=== PATIENT | female | born 1950 | race Caucasian/White ===

== ENCOUNTER 2017-09-23 11:54 | Inpatient (IN) ==
[2017-09-23] MEDS ORDERED: Acetaminophen IV 1,000 MG/100 ML INFUS..BTL IVPB ONE (12:47)
--- NOTE | 2017-09-23 12:50 | Anesthesia Evaluation PreOp ---
Date of Encounter: 09/23/17 Time of Encounter: 12:47 - Past History Planned Operation: lap sigmoidd colectomy, poss open, colonoscopy intraop Cardiac History: HTN Pulmonary History: Denies Any Significant HX MANAGER AGRICULTURE History: Other (anxiety) Other Medical History: Diabetes Type II, Other (gout, arthritis) Anesthesia History: No Prior Anesthetic Complications, Past Anesthesia (jarad, appendectomy, d&c, hysterectomy, kidney stones, colonoscopy) Alcohol Use: none Drug use: none Medications and Allergies ALPRAZolam [Xanax 0.5 MG Tablet] 0.5 mg PO BID PRN 09/23/17 [History] Atorvastatin [Lipitor] 10 mg PO HS 09/23/17 [History] Fish Oil/Dha/Epa [Fish Oil 1,200 mg Fish Oil] 1 cap PO DAILY 09/23/17 [History] Gabapentin [Neurontin] 100 mg PO BID 09/23/17 [History] Gabapentin [Neurontin] 200 mg PO HS 09/23/17 [History] Hydrochlorothiazide [Microzide] 12.5 mg PO DAILY 09/23/17 [History] Lisinopril [Zestril] 20 mg PO DAILY 09/23/17 [History] Multivitamin/Iron/Folic Acid [Centrum Women Tablet] 1 tab PO DAILY 09/23/17 [ History] 3 Allergy/AdvReac Type Severity Reaction Status Date / Time No Known Allergies Allergy Verified 09/23/17 12:45 - Meds/Allergy Pre-op Review Medications Reviewed: Yes Allergies Reviewed: Yes Beta Blockers on Current Med List: No Anesthesia Results - Labs Laboratory Tests 07/29/17 09/15/17 09/15/17 13:30 14:00 14:00 WBC 12.6 H Hgb 11.9 Hct 35.1 L Plt Count 275 PT 11.3 INR 1.1 APTT 29.9 Sodium Potassium Chloride Carbon Dioxide BUN Creatinine Glucose 106 H 09/15/17 14:00 WBC Hgb Hct Plt Count PT INR APTT Sodium 139 Potassium 4.0 Chloride 107 Carbon Dioxide 26 BUN 21 Creatinine 0.63 Glucose - Imaging EKG: report reviewed (09/15/17 sinus bradycardia at 56 bpm) Anesthesia Exam O2 Sat Height 1.68 m Weight 97.976 kg Height: 66" Weight: 216lbs NPO (# of Hours): >8 Pain Scale: 0 Pain Scale Used: Numeric (1 - 10) - HEENT Pupil (Motor): Pupils equal, EOMI Mallampati: III Teeth: Normal Oral Opening: Greater than 3 - MANAGER AGRICULTURE LOC: Oriented MANAGER AGRICULTURE Motor: Normal RUE, Normal LUE, Normal RLE, Normal LLE, Normal Face MANAGER AGRICULTURE Sensory: Normal: RUE, LUE, RLE, LLE, Face - Cardiac Rhythm: Regular - Pulmonary Breath Sounds: bilateral Clear Respiratory Effort: Symmetrical Anesthesia Assess/Plan ASA Score: 2 Modified Yeni Scale for Level of Consciousness: Cooperative, oriented, and tranquil Anesthetic Plan: General Monitoring Plan: Standard Monitors Recovery Plan: PACU
[2017-09-23] MEDS ORDERED: CeFAZolin Syr 2,000MG/20 ML 2,000 MG/20 ML SYRINGE IVPB ONE ×2 (13:11→23:53)
[2017-09-23] MEDS ORDERED: MetroNIDAZOLE 500 MG/100 ML 500 MG/100 ML BAG IVPB ONE ×2 (13:13→23:53)
[2017-09-23] MEDS: Ringers Solution, Lactated 1,000 ML IVC SCH ×2 (13:24→23:29)
--- NOTE | 2017-09-23 14:59 | General Surg History&Physical ---
Date of Encounter: 09/23/17 Time of Encounter: 14:57 Assessment and Plan (1) Colon polyp Current Visit: Yes Status: Acute 66F with polyp found on screening colonosocpy that was unresectable; pathology identified an adenomatous change within the lesion; patient also with blood rectal discharge for over a year; no changes in patient health since last evaluation okay to proceed with surgery The assessment and plan as outlined above was discussed with the patient and/or family members who expressed understanding and agreement. All questions were answered. Qualifiers: Colon polyp type: adenomatous Colon location: sigmoid Qualified Code(s): D12.5 - Benign neoplasm of sigmoid colon History of Present Illness Chief complaint: unresectable polyp, tarry black/blood rectal discharge HPI: Ms. Crawford is a 66 year old female who is s/p screenng colonoscopy who was found to have an unresectable polyp. In addition, after the colonoscopy, she has reported tarry black, blood rectal discharge for over a year. Due to these symptoms I felt it was prudent to offer her a resection; Past Med Surg Social Fam HX - Past Medical History Medical history: arthritis, dialysis, hyperlipidemia, hypertension, kidney stones Psychiatric history: anxiety - Past Surgical History Surgical History: appendectomy, cholecystectomy, hysterectomy - Social History Smoking Status: Never smoker Smokeless Tobacco Status: No Alcohol use: none Drug use: none - Additional Family History Additional family history: non contributory Medications and Allergies ALPRAZolam [Xanax 0.5 MG Tablet] 0.5 mg PO BID PRN 09/23/17 [History] Atorvastatin [Lipitor] 10 mg PO HS 09/23/17 [History] Bran/Gum/Fib/Monica/Psyl/Kelp/Pec [Fiber 6 Tablet] 1,000 mg PO DAILY 09/23/17 [ History] Fish Oil/Dha/Epa [Fish Oil 1,200 mg Fish Oil] 1 cap PO DAILY 09/23/17 [History] Gabapentin [Neurontin] 100 mg PO BID 09/23/17 [History] Gabapentin [Neurontin] 200 mg PO HS 09/23/17 [History] Hydrochlorothiazide [Microzide] 12.5 mg PO DAILY 09/23/17 [History] Lisinopril [Zestril] 20 mg PO DAILY 09/23/17 [History] Multivitamin/Iron/Folic Acid [Centrum Women Tablet] 1 tab PO DAILY 09/23/17 [ History] 3 Allergy/AdvReac Type Severity Reaction Status Date / Time No Known Allergies Allergy Verified 09/23/17 13:17 Review of Systems All systems PM: The remainder of the systems were reviewed and are negative General Surgery Exam Initial Vital Signs Temp Pulse Resp BP Pulse Ox 97.8 F 97 18 113/63 98 09/23/17 13:00 09/23/17 13:00 09/23/17 13:00 09/23/17 13:00 09/23/17 13:00 - General physical appearance well developed, no distress - Eyes normal ocular movement - ENT normocephalic - Neck no lymphadectomy - Respiratory normal expansion, normal respiratory effort - Cardiovascular Cardiovascular exam: Present: RRR - Abdomen Abdomen general surgery: Present: soft, non tender - Integumentary Integumentary general surgery: Present: warm and dry - Neurologic Present: CN 2-12 grossly intact - Musculoskeletal Present: normal posture - Psychiatric Psychiatric general surgery: Present: A&Ox3 Results - Labs All other labs normal.
[2017-09-23] MEDS ORDERED: Lidocaine -MPF 2% 2 ML VIAL ONE (16:45)
[2017-09-23] MEDS ORDERED: *HR* Rocuronium Bromide 50 MG/5 ML VIAL ONE ×2 (16:45→18:47)
[2017-09-23] MEDS ORDERED: *HR* Propofol 200 MG/20 ML VIAL IVP ONE (16:45)
[2017-09-23] MEDS ORDERED: *HR* FentaNYL (PF) 100 MCG/2 ML VIAL ONE ×2 (16:45→18:48)
[2017-09-23] MEDS ORDERED: *HR* Succinylcholine 200 MG/10 ML VIAL IVP ONE (16:45)
[2017-09-23] MEDS ORDERED: *HR* Midazolam HCl 2 MG/2 ML VIAL ONE ×3 (16:45)
[2017-09-23] MEDS ORDERED: *HR* Midazolam HCl 2 MG/2 ML VIAL IVP PRN (16:47)
[2017-09-23] MEDS ORDERED: *HR* OxyCODONE Immed Rel 5 MG TABLET PO PRN ×3 (16:47→23:53)
[2017-09-23] MEDS ORDERED: MORPHINE SUL Oral CONC 10 MG/0.5 ML ORAL.SYG SL PRN (16:47)
[2017-09-23] MEDS ORDERED: *HR* Promethazine 25 MG/ML VIAL IVP PRN (16:47)
[2017-09-23] MEDS ORDERED: *HR* HYDROmorphone 2 MG TABLET PO PRN (16:47)
[2017-09-23] MEDS ORDERED: *HR* PHENYLEPHRINE 1,000 MCG/10 ML SYRINGE IVP ONE (19:01)
[2017-09-23] MEDS ORDERED: Dexamethasone 4 MG/ML VIAL ONE (19:34)
[2017-09-23] MEDS ORDERED: Ondansetron 4 MG/2 ML VIAL ONE ×2 (19:34→22:04)
[2017-09-23] MEDS ORDERED: *HR* Morphine 10 MG/ML VIAL ONE (20:15)
[2017-09-23] MEDS ORDERED: EPHEDrine 50 MG/ML VIAL ONE (20:49)
[2017-09-23] MEDS ORDERED: Neostigmine Methylsulfate 3 MG/3 ML SYRINGE ONE (22:04)
--- NOTE | 2017-09-23 22:12 | Operative Note ---
Date of procedure: 09/23/17 Pre-op diagnosis: Unresectable colon polyp Post-op diagnosis: same Procedure: Sigmoid colectomy Anesthesia: GETA Surgeon: Edgardo Fuller Was there an school health assistant present: Yes Fisheries Director: Zak Moody Estimated blood loss (cc): 50 Specimen: Sigmoid colon Condition: stable Disposition: PACU Procedure in Detail: Co-surgeon note I was asked to participate in the open portion of the sigmoid colectomy. Dr. Mckenna had performed attempted laparoscopic sigmoid colectomy and was unable to complete this laparoscopically. Appropriate conversion to open was made area I was able to perform mobilization of the peritoneal reflection of the rectum allowing further mobilization of the rectum out of the pelvis. Once this was done we are able to identify some sigmoid colon remained in that the rectosigmoid was actually somewhat lower. A new Contour staple line was placed below the previous staple line and this included all of the sigmoid colon. This allowed the EEA to pass easily to the level of the staple line. Dr. Moody and previously placed a 29 mm anvil in the proximal colon. This appeared to be well vascularized. I performed the perineal operation of the EEA. This was passed under Dr. Mckenna direction to the staple line. I advanced the post through the staple line. Dr. Mckenna connected the anvil to the post. I closed to the middle of the green indicator and fired the EEA. This was held for 30 seconds. I then opened 3/2 turns and rotated 90 degrees in each direction area the EEA was removed easily. Both anastomotic rings were intact. At the conclusion of the staple anastomosis, we performed circumferential seromuscular stitches to reinforce the staple line. We also closed the mesentery to remove any tension from the posterior portion of the anastomosis. The tension was perfect and the anastomosis appeared to be well vascularized. This gave an excellent technical result. The abdomen was irrigated with saline and air tested the anastomosis. There did not appear to be any air leaks. The abdomen was closed with 0 PDS and skin clips. This is a co-surgeon Note
[2017-09-23] MEDS: *HR* HYDROmorphone (PF) 1 MG/ML SYRINGE IVP PRN ×2 (23:15→23:20)
--- NOTE | 2017-09-23 23:51 | Anesthesia Evaluation Post Op ---
Date of Encounter: 09/23/17 Time of Encounter: 23:28 - Vital Signs Vital Signs: Last Vital Signs Temp 98.2 F 09/23/17 22:55 Pulse 81 09/23/17 23:15 Resp 16 09/23/17 23:15 BP 124/56 09/23/17 23:15 Pulse Ox 100 09/23/17 23:15 - Lungs Lungs: Clear Ascult./Percussion - Airway Airway: Non-obstructed - Cardiovascular Regular Rate - Mental Status Mental Status: Alert & Oriented, Answers Appropriately - Pain Pain Scale: 3 - Nausea Vomiting Nausea Vomiting: Not Present - Hydration Hydration: NPO, Marion catheter - Discharge PostOp Status: Transfer Patient to floor
[2017-09-23] MEDS ORDERED: *HR* HYDROmorphone 20 MG/20 ML PCA IVC PRN (23:53)
[2017-09-23] MEDS ORDERED: Naloxone 0.4 MG/ML INJ IVP PRN (23:53)
[2017-09-24] MEDS: Ondansetron 4 MG/2 ML VIAL IVP SCH ×2 (00:18→06:27)
[2017-09-24] MEDS: D5% in Lactated Ringers 1,000 ML IVC SCH ×2 (00:59→10:52)
[2017-09-24 06:21] LABS: Basophils % 0.1 %; Hematocrit 30.2 % (35.3-44.9); Hemoglobin 10.3 g/dL (11.5-15.4); Immature Granulocytes % 0.6 % (0-4); Lymphocytes # 0.6 K/mcL (0.6-4.6); Lymphocytes % 3.4 %; Mean Corpuscular HGB Conc 34.1 g/dL (31.6-35.5); Mean Corpuscular Hemoglobin 29.9 pg (28.0-33.3); Mean Corpuscular Volume 87.5 fL (83.0-100.0); Mean Platelet Volume 11.5 fL (9.4-12.4); Monocytes # 0.6 K/mcL (0.0-1.3); Monocytes % 3.6 %; Neutrophils # 15.9 K/mcL (1.6-8.9); Platelet Count 214 K/mcL (140-400); Red Blood Count 3.45 M/mcL (3.82-4.97); Segmented Neutrophils % 92.3 %
[2017-09-24 06:45] LABS: BUN/Creatinine Ratio 34 (6-26); Blood Urea Nitrogen 21 mg/dL (8-23); Calcium 8.4 mg/dL (8.6-10.3); Carbon Dioxide 23 mEq/L (23-29); Chloride 105 mEq/L (98-107); Glucose 227 mg/dL (70-105); Magnesium 1.7 mg/dL (1.6-2.6); Osmolality,Calculated 292 (280-300); Phosphorous 3.6 mg/dL (2.7-4.5); Potassium 3.8 mEq/L (3.5-5.1); Sodium 136 mEq/L (136-145); eGFR For African Americans > 60 (> 60); eGFR For Non-African Americans > 60 (> 60)
[2017-09-24] MEDS ORDERED: Acetaminophen IV 1,000 MG/100 ML INFUS..BTL IVPB SCH (09:00)
[2017-09-24] MEDS: hydroCHLOROthiazide 25 MG TABLET PO SCH (10:36)
[2017-09-24] MEDS: Lisinopril 20 MG TABLET PO SCH (10:36)
[2017-09-24] MEDS: Gabapentin 100 MG CAPSULE PO SCH ×3 (10:52→21:37)
[2017-09-24] MEDS: Acetaminophen IV 1,000 MG/100 ML INFUS..BTL IVPB SCH (11:55)
[2017-09-24] MEDS: D5% in 0.45% NACL w KCl 20 MEQ/1,000 ML MLS IVC SCH (14:25)
[2017-09-24] MEDS: 0.9 % Sodium Chloride 1,000 ML IVC SCH ×2 (14:25→18:48)
--- NOTE | 2017-09-24 14:34 | General Surgery Progress Note ---
Date of Encounter: 09/24/17 Time of Encounter: 14:32 - Assessment and Plan (1) Colon polyp Current Visit: Yes Status: Acute 66F POD #1 s/p lap sigmoidectomy converted to open; CLD d/c snider bolus 2L over 4 hrs change IVF to MIVF d/c abx today pulm toilet activity as tolerated replete lytes repeat labs in AM Qualifiers: Colon polyp type: adenomatous Colon location: sigmoid Qualified Code(s): D12.5 - Benign neoplasm of sigmoid colon Subjective Patient reports: no new complaints, feels better, still having pain, pain is less, no flatus, afebrile Objective Vital Signs - Last 8 Hours Temp Pulse Resp BP Pulse Ox 09/24/17 10:53 98.2 F 68 14 98/49 99 09/24/17 07:42 98.0 F 90 15 97/59 97 Intake and Output 09/23/17 09/24/17 09/24/17 23:59 07:59 15:59 Intake Total 1000 / 1000 0 / 0 1100 / 1100 Output Total 150 / 150 0 / 0 1100 / 1100 Balance 850 / 850 0 / 0 0 / 0 Intake: IV Fluids 1000 / 1000 1100 / 1100 D5% & Lact. Ringers 1000 Ml Bag 1000 / 1000 1,000 ML @ 100 mls/hr IVC . Q10H [facility] Rx#:[id number] Lactated Ringers 1,000 ML @ 25 1000 / 1000 mls/hr IVC .Q24H [facility] Rx#: [id number] Ofirmev 1,000 mg/100 ml 1,000 100 / 100 mg In 100 ml @ 400 mls/hr IVPB DAILY [facility] Rx#:[id number] Oral 0 / 0 0 / 0 Output: Urine 0 / 0 Estimated Blood Loss 150 / 150 Catheter 1100 / 1100 Other: Meal npo Blood Glucose* 133 222 187 - General physical appearance no distress - Respiratory normal expansion, normal respiratory effort - Cardiovascular Cardiovascular exam: Present: RRR - Abdomen Abdomen: Present: soft, tender (appropriately tender) - Incision Incision: Present: clean and dry, intact - Rectum other (mild bleeding from rectum) - Neurologic CN 2-12 grossly intact - Musculoskeletal normal posture - Psychiatric oriented to time, oriented to person, oriented to place - Labs 09/24/17 05:24 09/24/17 05:24 Diabetes panel 09/24/17 Range/Units 05:24 Sodium 136 (136-145) mEq/L Potassium 3.8 (3.5-5.1) mEq/L Chloride 105 (98-107) mEq/L Carbon Dioxide 23 (23-29) mEq/L BUN 21 (8-23) mg/dL Creatinine 0.62 (0.60-1.20) mg/dL Glucose 227 H (70-105) mg/dL Calcium 8.4 L (8.6-10.3) mg/dL Calcium panel 09/24/17 Range/Units 05:24 Calcium 8.4 L (8.6-10.3) mg/dL Phosphorus 3.6 (2.7-4.5) mg/dL Pituitary panel 09/24/17 Range/Units 05:24 Sodium 136 (136-145) mEq/L Potassium 3.8 (3.5-5.1) mEq/L Chloride 105 (98-107) mEq/L Carbon Dioxide 23 (23-29) mEq/L BUN 21 (8-23) mg/dL Creatinine 0.62 (0.60-1.20) mg/dL Glucose 227 H (70-105) mg/dL Calcium 8.4 L (8.6-10.3) mg/dL Adrenal panel 09/24/17 Range/Units 05:24 Sodium 136 (136-145) mEq/L Potassium 3.8 (3.5-5.1) mEq/L Chloride 105 (98-107) mEq/L Carbon Dioxide 23 (23-29) mEq/L BUN 21 (8-23) mg/dL Creatinine 0.62 (0.60-1.20) mg/dL Glucose 227 H (70-105) mg/dL Calcium 8.4 L (8.6-10.3) mg/dL - VTE Documentation of Mechanical Device: Intermittent pneumatic compression device Consult Discharge Plan - Plan Referrals: Radha Warner CNP [Primary Care Provider] -
[2017-09-24] MEDS: Ondansetron 4 MG/2 ML VIAL IVP PRN (20:32)
[2017-09-24] MEDS: *HR* Enoxaparin 40 MG/0.4 ML SYRINGE SQ SCH (22:26)
[2017-09-25] MEDS: D5% in 0.45% NACL w KCl 20 MEQ/1,000 ML MLS IVC SCH ×2 (04:42→14:59)
[2017-09-25] MEDS: *HR* Enoxaparin 40 MG/0.4 ML SYRINGE SQ SCH (06:13)
[2017-09-25] MEDS: Gabapentin 100 MG CAPSULE PO SCH ×3 (06:13→20:31)
[2017-09-25 08:14] LABS: Basophils % 0.1 %; Hematocrit 28.1 % (35.3-44.9); Hemoglobin 9.2 g/dL (11.5-15.4); Immature Granulocytes % 0.6 % (0-4); Lymphocytes # 1.7 K/mcL (0.6-4.6); Lymphocytes % 7.8 %; Mean Corpuscular HGB Conc 32.7 g/dL (31.6-35.5); Mean Corpuscular Hemoglobin 29.5 pg (28.0-33.3); Mean Corpuscular Volume 90.1 fL (83.0-100.0); Mean Platelet Volume 11.7 fL (9.4-12.4); Monocytes # 1.2 K/mcL (0.0-1.3); Monocytes % 5.4 %; Neutrophils # 18.4 K/mcL (1.6-8.9); Platelet Count 219 K/mcL (140-400); Red Blood Count 3.12 M/mcL (3.82-4.97); Red Cell Distribution Width 14.8 % (11.5-14.5); Segmented Neutrophils % 86.1 %
[2017-09-25 09:00] LABS: BUN/Creatinine Ratio 19 (6-26); Blood Urea Nitrogen 9 mg/dL (8-23); Calcium 8.2 mg/dL (8.6-10.3); Carbon Dioxide 26 mEq/L (23-29); Chloride 109 mEq/L (98-107); Glucose 145 mg/dL (70-105); Magnesium 1.7 mg/dL (1.6-2.6); Osmolality,Calculated 287 (280-300); Phosphorous < 1.0 mg/dL (2.7-4.5); Potassium 3.8 mEq/L (3.5-5.1); Sodium 138 mEq/L (136-145); eGFR For African Americans > 60 (> 60); eGFR For Non-African Americans > 60 (> 60)
[2017-09-25] MEDS ORDERED: Potassium Phosphate 44 MEQ in 0.9 % Sodium Chloride 250 ML IVPB ONE (09:06)
[2017-09-25] MEDS: hydroCHLOROthiazide 25 MG TABLET PO SCH (09:55)
[2017-09-25] MEDS: Lisinopril 20 MG TABLET PO SCH (09:56)
--- NOTE | 2017-09-25 12:03 | General Surgery Progress Note ---
<Mo Tovar - Last Filed: 09/25/17 12:31> Date of Encounter: 09/25/17 Time of Encounter: 09:15 - Assessment and Plan (1) Colon polyp Current Visit: Yes Status: Acute POD#2 (09/23/17) S/P [id number] sigmoidectomy for large polyp discovered on recent screen colonoscopy. Plan: - continue clears for now as pt is not progressing, but not showing signs of intolerance yet - cont IVF as ordered - cont use of IS 10x/hour while awake - encourage activity as tolerated, at least up to chair TID - monitor lytes and replete as needed - PO4 was critically low today, so gave K-Phos 44mEq; rechecking this evening - serial CBC to monitor WBC and Hgb in post op period Qualifiers: Colon polyp type: adenomatous Colon location: sigmoid Qualified Code(s): D12.5 - Benign neoplasm of sigmoid colon Subjective Narrative: Pain somewhat improving. No nausea or vomiting. Still has weak appetite. Tolerating clears without provoking bloating, pain, nausea, or vomiting. No flatus or bowel movements as of yet. Denies feeling febrile overnight. Overnight vital signs stable, with somewhat tenuous blood pressure; calculated MAP >65mmHg). Did get a call from RN for critical low phosphorous of "1.0". Objective Vital Signs - Last 8 Hours Temp Pulse Resp BP Pulse Ox 09/25/17 11:00 99.3 F 91 16 121/69 95 09/25/17 07:03 98.2 F 89 16 96/60 93 09/25/17 04:25 98.4 F 86 15 107/70 94 Intake and Output 09/24/17 09/25/17 09/25/17 23:59 07:59 15:59 Intake Total 1999 1000 / 1000 796 / 796 Output Total 800 / 800 250 / 250 Balance 1200 / 1200 750 / 750 796 / 796 Intake: IV Fluids 1999 1000 / 1000 556 / 556 0.9 % Sodium Chloride 1,000 ML 1999 @ 500 mls/hr IVC .Q2H [facility] Rx#: [id number] KCl 20mEq IN D5%-0.45 NACL 20 1000 / 1000 556 / 556 meq In 1,000 ml @ 100 mls/hr IVC .Q10H [facility] Rx#:[id number] Oral 0 / 0 0 / 0 240 / 240 Output: Urine 250 / 250 Catheter 800 / 800 Other: # Voids 1 Weight 97.9 kg Blood Glucose* 104 Patient Weight 09/25/17 23:59 Weight 97.9 kg VITAL SIGNS: Reviewed. See [facility] GENERAL: alert and comfortable at rest. No acute distress. Answers questions appropriately. HEENT: PER, EOMi, oropharynx pink/moist CV: RRR, no murmurs or extra heart sounds, no JVD noted HOB at about 40deg RESPIRATORY: CTAB without wheezes, rales, or rhonchi ABD: expected hypoactivity in postop period, soft, not tympanic, non-tender, no guarding, no rigidity/distention INCISION: clean, dry, intact without purulence/bleeding/edema/rubor/calor EXTREMITY: grossly normal motor function, no pedal edema, radial pulse 2+ b/l NEUROLOGIC EXAM: AOx3, obeys commands, no speech deficits. PSYCHIATRIC: normal mood and affect SKIN: no gross lesions, rashes, or skin changes - Labs 09/25/17 07:26 09/25/17 07:26 Diabetes panel 09/25/17 Range/Units 07:26 Sodium 138 (136-145) mEq/L Potassium 3.8 (3.5-5.1) mEq/L Chloride 109 H (98-107) mEq/L Carbon Dioxide 26 (23-29) mEq/L BUN 9 (8-23) mg/dL Creatinine 0.48 L (0.60-1.20) mg/dL Glucose 145 H (70-105) mg/dL Calcium 8.2 L (8.6-10.3) mg/dL Calcium panel 09/25/17 Range/Units 07:26 Calcium 8.2 L (8.6-10.3) mg/dL Phosphorus < 1.0 L* (2.7-4.5) mg/dL Pituitary panel 09/25/17 Range/Units 07:26 Sodium 138 (136-145) mEq/L Potassium 3.8 (3.5-5.1) mEq/L Chloride 109 H (98-107) mEq/L Carbon Dioxide 26 (23-29) mEq/L BUN 9 (8-23) mg/dL Creatinine 0.48 L (0.60-1.20) mg/dL Glucose 145 H (70-105) mg/dL Calcium 8.2 L (8.6-10.3) mg/dL Adrenal panel 09/25/17 Range/Units 07:26 Sodium 138 (136-145) mEq/L Potassium 3.8 (3.5-5.1) mEq/L Chloride 109 H (98-107) mEq/L Carbon Dioxide 26 (23-29) mEq/L BUN 9 (8-23) mg/dL Creatinine 0.48 L (0.60-1.20) mg/dL Glucose 145 H (70-105) mg/dL Calcium 8.2 L (8.6-10.3) mg/dL - VTE Documentation of Mechanical Device: Intermittent pneumatic compression device Consult Discharge Plan - Plan Referrals: Radha Warner CNP [Primary Care Provider] - <Zak Moody - Last Filed: 09/25/17 17:43> Date of Encounter: 09/25/17 - Assessment and Plan (1) Colon polyp Current Visit: Yes Status: Acute Qualifiers: Colon polyp type: adenomatous Colon location: sigmoid Qualified Code(s): D12.5 - Benign neoplasm of sigmoid colon Objective Vital Signs - Last 8 Hours Temp Pulse Resp BP Pulse Ox 09/25/17 14:57 98.5 F 97 18 110/66 96 09/25/17 11:00 99.3 F 91 16 121/69 95 Intake and Output 09/25/17 09/25/17 09/25/17 07:59 15:59 23:59 Intake Total 1000 / 1000 1240 / 1240 Output Total 250 / 250 675 / 675 300 / 300 Balance 750 / 750 565 / 565 -300 / -300 Intake: IV Fluids 1000 / 1000 1000 / 1000 KCl 20mEq IN D5%-0.45 NACL 20 1000 / 1000 1000 / 1000 meq In 1,000 ml @ 100 mls/hr IVC .Q10H [facility] Rx#:[id number] Oral 0 / 0 240 / 240 Output: Urine 250 / 250 675 / 675 300 / 300 Other: # Voids 1 Weight 97.9 kg Blood Glucose* 131 120 Patient Weight 09/25/17 23:59 Weight 97.9 kg - Labs 09/25/17 07:26 09/25/17 16:24 Diabetes panel 09/25/17 09/25/17 Range/Units 07:26 16:24 Sodium 138 (136-145) mEq/L Potassium 3.8 4.2 (3.5-5.1) mEq/L Chloride 109 H (98-107) mEq/L Carbon Dioxide 26 (23-29) mEq/L BUN 9 (8-23) mg/dL Creatinine 0.48 L (0.60-1.20) mg/dL Glucose 145 H (70-105) mg/dL Calcium 8.2 L (8.6-10.3) mg/dL Calcium panel 09/25/17 09/25/17 Range/Units 07:26 16:24 Calcium 8.2 L (8.6-10.3) mg/dL Phosphorus < 1.0 L* 1.9 L (2.7-4.5) mg/dL Pituitary panel 09/25/17 09/25/17 Range/Units 07:26 16:24 Sodium 138 (136-145) mEq/L Potassium 3.8 4.2 (3.5-5.1) mEq/L Chloride 109 H (98-107) mEq/L Carbon Dioxide 26 (23-29) mEq/L BUN 9 (8-23) mg/dL Creatinine 0.48 L (0.60-1.20) mg/dL Glucose 145 H (70-105) mg/dL Calcium 8.2 L (8.6-10.3) mg/dL Adrenal panel 09/25/17 09/25/17 Range/Units 07:26 16:24 Sodium 138 (136-145) mEq/L Potassium 3.8 4.2 (3.5-5.1) mEq/L Chloride 109 H (98-107) mEq/L Carbon Dioxide 26 (23-29) mEq/L BUN 9 (8-23) mg/dL Creatinine 0.48 L (0.60-1.20) mg/dL Glucose 145 H (70-105) mg/dL Calcium 8.2 L (8.6-10.3) mg/dL - Attending Attestation patient seen and examined; POD #2 s/p lap converted to open sigmoidectomy; abdominal distension, but no vomiting; no reports of nausea; good UOP; pain controlled; good usage of IS; cont with clears at present, non carbonated; patient able to restrain if need be; will start PO pain meds; if pain controlled , then will d/c SAFETY ADVISOR; ambulate, OOBTC; IS usage; still awaiting return of bowel function;
[2017-09-25] MEDS: Acetaminophen IV 1,000 MG/100 ML INFUS..BTL IVPB SCH (17:16)
--- NOTE | 2017-09-25 17:46 | Operative Note ---
Date of procedure: 09/23/17 Pre-op diagnosis: unresectable polyp Post-op diagnosis: same Procedure: laparoscopic converted to open sigmoidectomy Implants: none Complications: none Anesthesia: GETA Surgeon: Zak Moody Was there an assistant speech language pathologist present: No Pipe Cleaning Machine Operator Other: Rakesh Palacios Estimated blood loss (cc): 150 Specimen: sigmoid colon Condition: stable Disposition: PACU Procedure in Detail: 66F who underwent a colonoscopy for screening polyps. During the colonoscopy there was a polyp within the sigmoid colon that was deemed unresectable. Pathology demonstrated focal adenomatous changes, but no outright malignancy. The plan was to return in 3 months for a repeat colonoscopy to attempt retrieval of the remaining polyp. However, It was not until the follow up visit that she made it known that she had been having tarry black and bloody rectal drainage for over a year. It was with these factors that the decision was made to proceed with resection of the polyp. The patient was brought into the operating room suite. Mechanical DVT prophylaxis was placed. She was placed in the supine position and underwent smooth induction of anesthesia. Preoperative antibiotics were given. A timeout was held identifying correct patient, pathology, procedure, and physician. I started by creating a supraumbilical incision and via open jerzy technique did enter into the abdomen. I then placed a 12mm incision along the patient' right side, about one hand breadth from the umbilical incision, followed by two five milllimeter incisions in the suprapubic and left side of the abdomen. I then inserted the appropriate trocars and began the procedure. Holding traction I began the dissection along the lateral aspect. I started along the proximal aspect of the sigmoid colon and mobilized the descending colon just distal to the splenic flexure. I used electrocautery along the white line of toldt until I felt I had adequate moblization of the descending colon. I then proceeded distally to mobilize the sigmoid colon and down towards the rectum. I was able to visualize the left iliac artery as well as the left ureter. I was careful to leave these two structures undisturbed. I then applied traction on the mobilized colon to identify the vascular pedicle. I used electrocautery to score the mesentery anterior and posterior to it. Using blunt dissection I was able to dissect the retroperitoneum off the mesentery to visualize the lateral abdominal wall. I was able to visualize the ureter and, again, left this structure undistrubed. I was able to dissect out the vascular pedicle and using the vascular load stapler, I did staple across this structure. I then proceeded to moblize the sigmoid colon and rectum distally along the medial aspect. I then used the bowel load stapler to stable across the bowel after creating a window to allow for the placement of the stapler. The stapler fired without issue. The proximal aspect of the colon, specifically the descending colon) was able to lay in the pelvis without tension. I then released the insufflation. Extended the supraumbilical incision, placed the sandie wound protector and retrieved the colon. I used the automatic pursestringer to resect the sigmoid colon. I then dilated up to size 29, placed the anvil and secured it with the nylon suture. I re-established insufflation and attempted dilation of the distal rectal stump. However, I met resistance as I tried to dilate up to size 29. Once I was able to do this I noticed that the staple line was disrupted. I stopped laparoscopically and opened the patient. I extended the supraumbilical incision toward the pelvis and entered into the abdomen. My senior windows systems engineer assisted with this portion of the procedure. Please see his report for more detail. After we mobilized more of the rectum, we realized there was a segment of sigmoid remaining. This was resected after more moblization. We mobilized down to the peritoneal reflection. A new contous stapler was used to resect the remaining sigmoid. I was then able to size up to size [address] the EEA stapler. I was able to create my anastomosis without tension or issue. I tested it with saline and saw no bubbles. I then concluded the procedure and began closing. I closed the fascia using a looped PDS suture in a running fashion. I then used a vicryl suture to reapproximate the deep dermal layer. And used a monocryl in a subcuticular running fashion to close the skin. All other incisions were closed using the monocryl suture in an interrupted fashion. The patient tolerated the procedure well and was escorted to PACU in stable condition.
[2017-09-26] MEDS: D5% in 0.45% NACL w KCl 20 MEQ/1,000 ML MLS IVC SCH ×3 (01:04→09:54)
[2017-09-26 05:49] LABS: Basophils % 0.2 %; Eosinophils # 0.1 K/mcL (0.0-0.6); Eosinophils % 0.6 %; Hematocrit 29.1 % (35.3-44.9); Hemoglobin 9.5 g/dL (11.5-15.4); Immature Granulocytes % 0.9 % (0-4); Lymphocytes # 1.2 K/mcL (0.6-4.6); Lymphocytes % 6.8 %; Mean Corpuscular HGB Conc 32.6 g/dL (31.6-35.5); Mean Corpuscular Hemoglobin 29.3 pg (28.0-33.3); Mean Corpuscular Volume 89.8 fL (83.0-100.0); Mean Platelet Volume 10.9 fL (9.4-12.4); Monocytes # 0.9 K/mcL (0.0-1.3); Monocytes % 5.1 %; Neutrophils # 15.2 K/mcL (1.6-8.9); Platelet Count 232 K/mcL (140-400); Red Blood Count 3.24 M/mcL (3.82-4.97); Red Cell Distribution Width 14.6 % (11.5-14.5); Segmented Neutrophils % 86.4 %
[2017-09-26 06:12] LABS: BUN/Creatinine Ratio 14 (6-26); Blood Urea Nitrogen 6 mg/dL (8-23); Calcium 8.2 mg/dL (8.6-10.3); Carbon Dioxide 23 mEq/L (23-29); Chloride 109 mEq/L (98-107); Glucose 149 mg/dL (70-105); Magnesium 1.6 mg/dL (1.6-2.6); Osmolality,Calculated 286 (280-300); Phosphorous 1.3 mg/dL (2.7-4.5); Potassium 3.9 mEq/L (3.5-5.1); Sodium 138 mEq/L (136-145); eGFR For African Americans > 60 (> 60); eGFR For Non-African Americans > 60 (> 60)
[2017-09-26] MEDS: *HR* Enoxaparin 40 MG/0.4 ML SYRINGE SQ SCH (06:47)
[2017-09-26] MEDS: Lisinopril 20 MG TABLET PO SCH (08:20)
[2017-09-26] MEDS: hydroCHLOROthiazide 25 MG TABLET PO SCH (08:20)
[2017-09-26] MEDS: Gabapentin 100 MG CAPSULE PO SCH ×3 (08:29→20:28)
[2017-09-26] MEDS: Acetaminophen IV 1,000 MG/100 ML INFUS..BTL IVPB SCH (08:30)
[2017-09-26] MEDS ORDERED: Potassium Phosphate 44 MEQ in 0.9 % Sodium Chloride 250 ML IVPB ONE (13:34)
--- NOTE | 2017-09-26 14:20 | General Surgery Progress Note ---
<JesuslizethLinden young - Last Filed: 09/26/17 14:16> Date of Encounter: 09/26/17 Time of Encounter: 08:10 - Assessment and Plan (1) Status post partial colectomy Current Visit: Yes Status: Acute Status post laparoscopic converted to open sigmoidectomy POD#3 Patient's abdominal pain has decreased from yesterday. She still denies a BM and passing gas, although she has normal bowel sounds on exam. The sutures on the lower portion of her abdominal incision seemed to unravel a bit. As a result steristrips were placed across the entire incision. Patient is able to tolerate clear liquids. WBC count has decreased from 21.4 down to 17.6 since yesterday. Patient was afebrile overnight. - continue IVF. - Continue clear liquid diet. - encourage activity as tolerated; at least up to chair TID - monitor electrolytes and replete as needed. - Posphorous continued to be low today despite being given 44 meq of K-phos yesterday. Current level at 1.3. Ordered 44 meq of K-Phos and 30 mmol of Na- Phos. Recheck level tomorrow. - Continue to monitor WBC count. Subjective Narrative: Patient says that her abdominal pain has decreased since yesterday. She denies any nausea and vomiting. She denies any BM or passing gas. She denies any chest pain and SOB. Denies any fever overnight. Objective VITAL SIGNS: Reviewed. See [facility] GENERAL: no apparent distress. HEENT: [Normocephalic, PER, EOMi, oropharynx pink/moist, no JVD noted.] CV: b/l rad pulses 2+, RRR, no murmurs or gallops, no JVD RESPIRATORY: CTAB without wheezes, rales, or rhonchi ABD: soft, minor lower abdominal pain b/l with deep palpation, no rebound/ guarding/rigidity, no peritoneal signs. Normal bowel sounds present. INCISION: clean, dry, intact without purulence/bleeding/edema/rubor/calor. Lower portion of incision with unraveled sutures. Minor drainage with palpation. EXTREMITY: grossly normal motor function, no pedal edema, peripheral pulses 2+ b /l NEUROLOGIC EXAM: AOx3, obeys commands, no speech deficits. PSYCHIATRIC: normal mood and affect SKIN: no rashes or skin changes Vital Signs - Last 8 Hours Temp Pulse Resp BP Pulse Ox 09/26/17 11:03 98.2 F 79 16 115/75 95 Intake and Output 09/25/17 09/26/17 09/26/17 23:59 07:59 15:59 Intake Total 360 / 360 1200 / 1200 1320 / 1320 Output Total 300 / 300 650 / 650 350 / 350 Balance 60 / 60 550 / 550 970 / 970 Intake: IV Fluids 360 / 360 1000 / 1000 1300 / 1300 KCl 20mEq IN D5%-0.45 NACL 20 1000 / 1000 1200 / 1200 meq In 1,000 ml @ 100 mls/hr IVC .Q10H [facility] Rx#:[id number] Ofirmev 1,000 mg/100 ml 1,000 100 / 100 100 / 100 mg In 100 ml @ 400 mls/hr IVPB DAILY [facility] Rx#:[id number] Oral 0 / 0 200 / 200 20 / 20 Output: Urine 300 / 300 650 / 650 350 / 350 Other: Meal NPO Lunch Percent of Meal Consumed 0% 0% # Voids 1 # Bowel Movements 0 0 Weight 98.1 kg Blood Glucose* 162 144 138 Patient Weight 09/26/17 23:59 Weight 98.1 kg - Labs 09/26/17 05:31 09/26/17 05:31 Diabetes panel 09/25/17 09/26/17 Range/Units 16:24 05:31 Sodium 138 (136-145) mEq/L Potassium 4.2 3.9 (3.5-5.1) mEq/L Chloride 109 H (98-107) mEq/L Carbon Dioxide 23 (23-29) mEq/L BUN 6 L (8-23) mg/dL Creatinine 0.44 L (0.60-1.20) mg/dL Glucose 149 H (70-105) mg/dL Calcium 8.2 L (8.6-10.3) mg/dL Calcium panel 09/25/17 09/26/17 Range/Units 16:24 05:31 Calcium 8.2 L (8.6-10.3) mg/dL Phosphorus 1.9 L 1.3 L (2.7-4.5) mg/dL Pituitary panel 09/25/17 09/26/17 Range/Units 16:24 05:31 Sodium 138 (136-145) mEq/L Potassium 4.2 3.9 (3.5-5.1) mEq/L Chloride 109 H (98-107) mEq/L Carbon Dioxide 23 (23-29) mEq/L BUN 6 L (8-23) mg/dL Creatinine 0.44 L (0.60-1.20) mg/dL Glucose 149 H (70-105) mg/dL Calcium 8.2 L (8.6-10.3) mg/dL Adrenal panel 09/25/17 09/26/17 Range/Units 16:24 05:31 Sodium 138 (136-145) mEq/L Potassium 4.2 3.9 (3.5-5.1) mEq/L Chloride 109 H (98-107) mEq/L Carbon Dioxide 23 (23-29) mEq/L BUN 6 L (8-23) mg/dL Creatinine 0.44 L (0.60-1.20) mg/dL Glucose 149 H (70-105) mg/dL Calcium 8.2 L (8.6-10.3) mg/dL - VTE Documentation of Mechanical Device: Intermittent pneumatic compression device Consult Discharge Plan - Plan Referrals: Zak Moody MD [Non-Partnered Physician] - 10/05/17 11:00 am <Apryl Solorzano - Last Filed: 09/26/17 14:43> Date of Encounter: 09/26/17 - Assessment and Plan (1) Leukocytosis Current Visit: Yes Status: Acute not on antibiotics and decreased today, vitals stable and patient looks really good, will trend but likely secondary and reactive due to surgery Qualifiers: Leukocytosis type: unspecified Qualified Code(s): D72.829 - Elevated white blood cell count, unspecified (2) Status post partial colectomy Current Visit: Yes Status: Acute patient without return of bowel function, does state she has hiccups or belches once in a while has good bowel sounds but no return of bowel function yet, continue limited clears until does continue ivf pain well controlled OOB ambulating inferior aspect of wound dehisced at skin level - did not cut suture (do not want all of wound to open), tincoben and steristrips along wound superiorly open wound packed with mesalt, covered with 4x4 gauze and tape, change daily continue abdominal binder (3) HTN (hypertension) Current Visit: Yes Status: Chronic normotensive. Qualifiers: Hypertension type: essential hypertension Qualified Code(s): I10 - Essential (primary) hypertension (4) Hypophosphatemia Current Visit: Yes Status: Acute replaced with kphos and Naphos today, evaluate lab tomorrow Subjective Patient reports: no new complaints, feels better, still having pain, pain is less, no flatus, no bowel movement, afebrile Objective Vital Signs - Last 8 Hours Temp Pulse Resp BP Pulse Ox 09/26/17 14:26 98.1 F 80 16 102/66 95 09/26/17 11:03 98.2 F 79 16 115/75 95 Intake and Output 09/25/17 09/26/17 09/26/17 23:59 07:59 15:59 Intake Total 360 / 360 1200 / 1200 1320 / 1320 Output Total 300 / 300 650 / 650 550 / 550 Balance 60 / 60 550 / 550 770 / 770 Intake: IV Fluids 360 / 360 1000 / 1000 1300 / 1300 KCl 20mEq IN D5%-0.45 NACL 20 1000 / 1000 1200 / 1200 meq In 1,000 ml @ 100 mls/hr IVC .Q10H [facility] Rx#:[id number] Ofirmev 1,000 mg/100 ml 1,000 100 / 100 100 / 100 mg In 100 ml @ 400 mls/hr IVPB DAILY [facility] Rx#:[id number] Oral 0 / 0 200 / 200 20 / 20 Output: Urine 300 / 300 650 / 650 550 / 550 Other: Meal NPO Lunch Percent of Meal Consumed 0% 0% # Voids 1 # Bowel Movements 0 0 Weight 98.1 kg Blood Glucose* 162 144 138 Patient Weight 09/26/17 23:59 Weight 98.1 kg - General physical appearance well developed, no distress, obese - Eyes PERRL, normal ocular movement - ENT normal mucosa, normocephalic - Neck Neck exam: trachea midline - Respiratory normal expansion, clear to auscultation - Cardiovascular Cardiovascular exam: Present: RRR - Abdomen Abdomen: Present: bowel sounds present, soft, tender (appropriate post op tenderness). Absent: distended, guarding, rebound - Incision Incision: Present: serous, open (wound opened inferiorly) - Integumentary no rash, no growths - Neurologic CN 2-12 grossly intact - Musculoskeletal normal posture - Psychiatric oriented to time, oriented to person, oriented to place, speech is normal, memory intact - Labs 09/26/17 05:31 09/26/17 05:31 Vital Signs Temp Pulse Resp BP Pulse Ox 09/26/17 14:26 98.1 F 80 16 102/66 95 09/26/17 11:03 98.2 F 79 16 115/75 95 09/26/17 06:16 99.6 F 85 16 115/70 93 09/26/17 04:00 99 F 93 14 120/58 93 09/26/17 00:35 99.5 F 92 14 110/65 96 09/25/17 19:44 99.0 F 89 15 96/63 93 09/25/17 14:57 98.5 F 97 18 110/66 96 Intake and Output 09/25/17 09/26/17 09/26/17 23:59 07:59 15:59 Intake Total 360 / 360 1200 / 1200 1320 / 1320 Output Total 300 / 300 650 / 650 550 / 550 Balance 60 / 60 550 / 550 770 / 770 Intake: IV Fluids 360 / 360 1000 / 1000 1300 / 1300 KCl 20mEq IN D5%-0.45 NACL 20 1000 / 1000 1200 / 1200 meq In 1,000 ml @ 100 mls/hr IVC .Q10H [facility] Rx#:[id number] Ofirmev 1,000 mg/100 ml 1,000 100 / 100 100 / 100 mg In 100 ml @ 400 mls/hr IVPB DAILY [facility] Rx#:[id number] Oral 0 / 0 200 / 200 20 / 20 Output: Urine 300 / 300 650 / 650 550 / 550 Other: Meal NPO Lunch Percent of Meal Consumed 0% 0% # Voids 1 # Bowel Movements 0 0 Weight 98.1 kg Blood Glucose* 162 144 138 Patient Weight 09/26/17 23:59 Weight 98.1 kg Short CBC 09/26/17 Range/Units 05:31 WBC 17.6 H (4.3-11.1) K/mcL Hgb 9.5 L (11.5-15.4) g/dL Hct 29.1 L (35.3-44.9) % Plt Count 232 (140-400) K/mcL Neutrophils # 15.2 H (1.6-8.9) K/mcL BMP 09/26/17 09/25/17 Range/Units 05:31 16:24 Sodium 138 (136-145) mEq/L Potassium 3.9 4.2 (3.5-5.1) mEq/L Chloride 109 H (98-107) mEq/L Carbon Dioxide 23 (23-29) mEq/L BUN 6 L (8-23) mg/dL Creatinine 0.44 L (0.60-1.20) mg/dL Glucose 149 H (70-105) mg/dL Calcium 8.2 L (8.6-10.3) mg/dL - Attending Attestation I examined this patient and my medical decision-making was reviewed with the Resident Physician. I agree with the documented findings, disposition and treatment plan as described except to the extent set forth below.
[2017-09-26] MEDS: Ondansetron 4 MG/2 ML VIAL IVP PRN (20:45)
[2017-09-27 06:27] LABS: Basophils % 0.3 %; Eosinophils # 0.3 K/mcL (0.0-0.6); Eosinophils % 2.5 %; Hematocrit 27.5 % (35.3-44.9); Hemoglobin 8.9 g/dL (11.5-15.4); Immature Granulocytes % 0.4 % (0-4); Lymphocytes # 1.2 K/mcL (0.6-4.6); Lymphocytes % 10.3 %; Mean Corpuscular HGB Conc 32.4 g/dL (31.6-35.5); Mean Corpuscular Hemoglobin 28.7 pg (28.0-33.3); Mean Corpuscular Volume 88.7 fL (83.0-100.0); Mean Platelet Volume 11.1 fL (9.4-12.4); Monocytes # 0.6 K/mcL (0.0-1.3); Monocytes % 5.1 %; Neutrophils # 9.8 K/mcL (1.6-8.9); Platelet Count 235 K/mcL (140-400); Red Cell Distribution Width 14.6 % (11.5-14.5); Segmented Neutrophils % 81.4 %
[2017-09-27 07:03] LABS: BUN/Creatinine Ratio 18 (6-26); Blood Urea Nitrogen 8 mg/dL (8-23); Calcium 7.7 mg/dL (8.6-10.3); Carbon Dioxide 23 mEq/L (23-29); Chloride 112 mEq/L (98-107); Glucose 137 mg/dL (70-105); Osmolality,Calculated 292 (280-300); Phosphorous 2.9 mg/dL (2.7-4.5); Potassium 3.8 mEq/L (3.5-5.1); Sodium 141 mEq/L (136-145); eGFR For African Americans > 60 (> 60); eGFR For Non-African Americans > 60 (> 60)
[2017-09-27] MEDS: Gabapentin 100 MG CAPSULE PO SCH ×3 (07:06→20:53)
[2017-09-27] MEDS: Lisinopril 20 MG TABLET PO SCH (07:07)
[2017-09-27] MEDS: *HR* Enoxaparin 40 MG/0.4 ML SYRINGE SQ SCH (07:07)
[2017-09-27] MEDS: hydroCHLOROthiazide 25 MG TABLET PO SCH (07:07)
[2017-09-27] MEDS: D5% in 0.45% NACL w KCl 20 MEQ/1,000 ML MLS IVC SCH ×2 (08:16→17:24)
--- NOTE | 2017-09-27 10:29 | General Surgery Progress Note ---
<Linden Westfall - Last Filed: 09/27/17 13:18> Date of Encounter: 09/27/17 Time of Encounter: 07:30 - Assessment and Plan (1) Status post partial colectomy Current Visit: Yes Status: Acute Status post laparoscopic converted to open sigmoidectomy POD#4 Minimal abdominal pain on exam. She still denies a BM but admits to passing gas. She has normal bowel sounds on exam. Patient was saying that she was nauseous and dry heaving last night. Her WBC count continues to downtrend dropping from 17.6 yesterday to 12 today. She was afebrile overnight. - continue IVF. - Continue clear liquid diet. - encourage activity as tolerated; at least up to chair TID - monitor electrolytes and replete as needed. - Phosphorus level normalized today at 2.9. - Continue to monitor WBC count. Subjective Narrative: Patient says that she was nauseous last night, citing that she was dry heaving. She denies any vomiting. Denies any BM but admits to passing gas. Denies any abdominal pain. Denies any chest pain or SOB. Denies any fever or chills. Objective VITAL SIGNS: Reviewed. See [facility] GENERAL: no apparent distress. HEENT: [Normocephalic, PER, EOMi, oropharynx pink/moist, no JVD noted.] CV: b/l rad pulses 2+, RRR, no murmurs or gallops, no JVD RESPIRATORY: CTAB without wheezes, rales, or rhonchi ABD: soft, minor tendress with deep palpation around incision, no rebound/ guarding/rigidity, no peritoneal signs. Normal bowel sounds present. INCISION: clean, dry, intact without purulence/bleeding/edema/rubor/calor. Minor serosanguinos drainage. EXTREMITY: grossly normal motor function, no pedal edema, peripheral pulses 2+ b /l NEUROLOGIC EXAM: AOx3, obeys commands, no speech deficits. PSYCHIATRIC: normal mood and affect SKIN: no gross lesions, rashes, or skin changes Vital Signs - Last 8 Hours Temp Pulse Resp BP Pulse Ox 09/27/17 10:10 98.8 F 83 14 136/67 96 09/27/17 07:07 98.6 F 88 14 119/71 93 09/27/17 04:14 98.6 F 90 16 127/70 93 Intake and Output 09/26/17 09/27/17 09/27/17 23:59 07:59 15:59 Intake Total 610 / 610 260 / 260 450 / 450 Output Total 200 / 200 300 / 300 400 / 400 Balance 410 / 410 -40 / -40 50 / 50 Intake: IV Fluids 610 / 610 260 / 260 450 / 450 KCl 20mEq IN D5%-0.45 NACL 20 350 / 350 450 / 450 meq In 1,000 ml @ 100 mls/hr IVC .Q10H [facility] Rx#:[id number] Potassium Phosphate 44 MEQ In 0 260 / 260 .9 % Sodium Chloride 250 ML @ 40 mls/hr IVPB ONCE ONE Rx#: [id number] Sodium Phosphate 30 MMOL In 0.9 260 / 260 % Sodium Chloride 250 ML @ 42 mls/hr IVPB ONCE ONE Rx#: [id number] Oral 0 / 0 0 / 0 0 / 0 Output: Urine 200 / 200 300 / 300 400 / 400 Other: Meal Dinner Breakfast Percent of Meal Consumed 0% 0% Weight 98.1 kg Blood Glucose* 103 127 Patient Weight 09/27/17 23:59 Weight 98.1 kg - Labs 09/27/17 05:50 09/27/17 05:50 Diabetes panel 09/27/17 Range/Units 05:50 Sodium 141 (136-145) mEq/L Potassium 3.8 (3.5-5.1) mEq/L Chloride 112 H (98-107) mEq/L Carbon Dioxide 23 (23-29) mEq/L BUN 8 (8-23) mg/dL Creatinine 0.44 L (0.60-1.20) mg/dL Glucose 137 H (70-105) mg/dL Calcium 7.7 L (8.6-10.3) mg/dL Calcium panel 09/27/17 Range/Units 05:50 Calcium 7.7 L (8.6-10.3) mg/dL Phosphorus 2.9 (2.7-4.5) mg/dL Pituitary panel 09/27/17 Range/Units 05:50 Sodium 141 (136-145) mEq/L Potassium 3.8 (3.5-5.1) mEq/L Chloride 112 H (98-107) mEq/L Carbon Dioxide 23 (23-29) mEq/L BUN 8 (8-23) mg/dL Creatinine 0.44 L (0.60-1.20) mg/dL Glucose 137 H (70-105) mg/dL Calcium 7.7 L (8.6-10.3) mg/dL Adrenal panel 09/27/17 Range/Units 05:50 Sodium 141 (136-145) mEq/L Potassium 3.8 (3.5-5.1) mEq/L Chloride 112 H (98-107) mEq/L Carbon Dioxide 23 (23-29) mEq/L BUN 8 (8-23) mg/dL Creatinine 0.44 L (0.60-1.20) mg/dL Glucose 137 H (70-105) mg/dL Calcium 7.7 L (8.6-10.3) mg/dL - VTE Documentation of Mechanical Device: Intermittent pneumatic compression device Consult Discharge Plan - Plan Referrals: Zak Moody MD [Non-Partnered Physician] - 10/05/17 11:00 am <Zak Moody - Last Filed: 09/28/17 11:50> Date of Encounter: 09/27/17 - Assessment and Plan (1) Colon polyp Current Visit: Yes Status: Acute Qualifiers: Colon polyp type: adenomatous Colon location: sigmoid Qualified Code(s): D12.5 - Benign neoplasm of sigmoid colon Objective Vital Signs - Last 8 Hours Temp Pulse Resp BP Pulse Ox 09/28/17 11:32 98.6 F 64 15 124/76 97 09/28/17 07:13 98.3 F 72 14 117/63 94 09/28/17 05:52 98.2 F 73 16 119/65 95 Intake and Output 09/27/17 09/28/17 09/28/17 23:59 07:59 15:59 Intake Total 700 / 700 1000 / 1000 120 / 120 Output Total 0 / 0 Balance 700 / 700 1000 / 1000 120 / 120 Intake: IV Fluids 700 / 700 1000 / 1000 KCl 20mEq IN D5%-0.45 NACL 20 700 / 700 1000 / 1000 meq In 1,000 ml @ 100 mls/hr IVC .Q10H [facility] Rx#:[id number] Oral 0 / 0 0 / 0 120 / 120 Output: Urine 0 / 0 Other: Stool Size Moderate Moderate Stool Consistency loose loose Stool Color Green Green # Bowel Movements 1 1 Blood Glucose* 133 130 133 - Labs 09/28/17 06:30 09/28/17 06:30 Diabetes panel 09/28/17 Range/Units 06:30 Sodium 137 (136-145) mEq/L Potassium 3.8 (3.5-5.1) mEq/L Chloride 110 H (98-107) mEq/L Carbon Dioxide 23 (23-29) mEq/L BUN 6 L (8-23) mg/dL Creatinine 0.41 L (0.60-1.20) mg/dL Glucose 134 H (70-105) mg/dL Calcium 7.8 L (8.6-10.3) mg/dL Calcium panel 09/28/17 Range/Units 06:30 Calcium 7.8 L (8.6-10.3) mg/dL Pituitary panel 09/28/17 Range/Units 06:30 Sodium 137 (136-145) mEq/L Potassium 3.8 (3.5-5.1) mEq/L Chloride 110 H (98-107) mEq/L Carbon Dioxide 23 (23-29) mEq/L BUN 6 L (8-23) mg/dL Creatinine 0.41 L (0.60-1.20) mg/dL Glucose 134 H (70-105) mg/dL Calcium 7.8 L (8.6-10.3) mg/dL Adrenal panel 09/28/17 Range/Units 06:30 Sodium 137 (136-145) mEq/L Potassium 3.8 (3.5-5.1) mEq/L Chloride 110 H (98-107) mEq/L Carbon Dioxide 23 (23-29) mEq/L BUN 6 L (8-23) mg/dL Creatinine 0.41 L (0.60-1.20) mg/dL Glucose 134 H (70-105) mg/dL Calcium 7.8 L (8.6-10.3) mg/dL - Attending Attestation I have personally seen and examined the patient. I have reviewed pertinent labs , imaging, progress notes, including this one. I agree with the above assessment and plan.
[2017-09-27] MEDS: Ondansetron 4 MG/2 ML VIAL IVP PRN (21:21)
[2017-09-28] MEDS: D5% in 0.45% NACL w KCl 20 MEQ/1,000 ML MLS IVC SCH ×4 (04:00→19:45)
[2017-09-28] MEDS: Gabapentin 100 MG CAPSULE PO SCH ×2 (06:03→12:32)
[2017-09-28] MEDS: *HR* Enoxaparin 40 MG/0.4 ML SYRINGE SQ SCH (06:07)
[2017-09-28 06:54] LABS: Basophils % 0.3 %; Eosinophils # 0.4 K/mcL (0.0-0.6); Eosinophils % 4.3 %; Hematocrit 26.6 % (35.3-44.9); Hemoglobin 8.6 g/dL (11.5-15.4); Immature Granulocytes % 0.6 % (0-4); Lymphocytes # 1.3 K/mcL (0.6-4.6); Lymphocytes % 13.6 %; Mean Corpuscular HGB Conc 32.3 g/dL (31.6-35.5); Mean Corpuscular Hemoglobin 29.1 pg (28.0-33.3); Mean Corpuscular Volume 89.9 fL (83.0-100.0); Mean Platelet Volume 10.4 fL (9.4-12.4); Monocytes # 0.7 K/mcL (0.0-1.3); Monocytes % 7.4 %; Neutrophils # 7.1 K/mcL (1.6-8.9); Platelet Count 250 K/mcL (140-400); Red Blood Count 2.96 M/mcL (3.82-4.97); Red Cell Distribution Width 14.3 % (11.5-14.5); Segmented Neutrophils % 73.8 %
[2017-09-28 07:01] LABS: BUN/Creatinine Ratio 15 (6-26); Blood Urea Nitrogen 6 mg/dL (8-23); Calcium 7.8 mg/dL (8.6-10.3); Carbon Dioxide 23 mEq/L (23-29); Chloride 110 mEq/L (98-107); Glucose 134 mg/dL (70-105); Osmolality,Calculated 284 (280-300); Potassium 3.8 mEq/L (3.5-5.1); Sodium 137 mEq/L (136-145); eGFR For African Americans > 60 (> 60); eGFR For Non-African Americans > 60 (> 60)
[2017-09-28] MEDS: Lisinopril 20 MG TABLET PO SCH (09:18)
[2017-09-28] MEDS: hydroCHLOROthiazide 25 MG TABLET PO SCH (09:18)
--- NOTE | 2017-09-28 10:46 | General Surgery Progress Note ---
<Linden Westfall - Last Filed: 09/28/17 11:34> Date of Encounter: 09/28/17 Time of Encounter: 06:50 - Assessment and Plan (1) Status post partial colectomy Current Visit: Yes Status: Acute Status post laparoscopic converted to open sigmoidectomy POD#5 No abdominal pain on exam (improved from yesterday. Patient started to have BM since yesterday. She has normal bowel sounds on exam. Her nausea has alos improved from yesterday. Her WBC count continues to downtrend dropping from 12 yesterday to 9.6 today. She was afebrile overnight. Total input 2170 ml. Output 1000 ml. - IVF adjusted from 100 ml/hr to 75 ml/hr. - Advanced to full liquid diet. - Encourage activity as tolerated; at least up to chair TID - Monitor electrolytes and replete as needed. - Stopped IV pain meds. Started on oral percocet PRN. Subjective Narrative: Patient says that her nausea has decreased from yesterday. She denies any vomiting. She says that she has had 4 bowel movements since yesterday. She denies any melena or hematochezia. She admits to minor abdominal pain with movement. She denies any chest pain or SOB. Objective VITAL SIGNS: Reviewed. See [facility] GENERAL: no apparent distress. HEENT: [Normocephalic, PER, EOMi, oropharynx pink/moist, no JVD noted.] CV: b/l rad pulses 2+, RRR, no murmurs or gallops, no JVD RESPIRATORY: CTAB without wheezes, rales, or rhonchi ABD: soft, non-tender, no rebound/guarding/rigidity, no peritoneal signs. Normal bowel sounds. INCISION: abdominal incision clean, dry, intact without purulence/bleeding/edema /rubor/calor. Minor serosaguinous drainage on bandages. EXTREMITY: grossly normal motor function, no pedal edema, peripheral pulses 2+ b /l NEUROLOGIC EXAM: AOx3, obeys commands, no speech deficits. PSYCHIATRIC: normal mood and affect SKIN: no gross lesions, rashes, or skin changes Vital Signs - Last 8 Hours Temp Pulse Resp BP Pulse Ox 09/28/17 07:13 98.3 F 72 14 117/63 94 09/28/17 05:52 98.2 F 73 16 119/65 95 Intake and Output 09/27/17 09/28/17 09/28/17 23:59 07:59 15:59 Intake Total 700 / 700 1000 / 1000 Output Total 0 / 0 Balance 700 / 700 1000 / 1000 Intake: IV Fluids 700 / 700 1000 / 1000 KCl 20mEq IN D5%-0.45 NACL 20 700 / 700 1000 / 1000 meq In 1,000 ml @ 100 mls/hr IVC .Q10H [facility] Rx#:[id number] Oral 0 / 0 0 / 0 Output: Urine 0 / 0 Other: Stool Size Moderate Moderate Stool Consistency loose loose Stool Color Green Green # Bowel Movements 1 1 Blood Glucose* 133 130 - Labs 09/28/17 06:30 09/28/17 06:30 Diabetes panel 09/28/17 Range/Units 06:30 Sodium 137 (136-145) mEq/L Potassium 3.8 (3.5-5.1) mEq/L Chloride 110 H (98-107) mEq/L Carbon Dioxide 23 (23-29) mEq/L BUN 6 L (8-23) mg/dL Creatinine 0.41 L (0.60-1.20) mg/dL Glucose 134 H (70-105) mg/dL Calcium 7.8 L (8.6-10.3) mg/dL Calcium panel 09/28/17 Range/Units 06:30 Calcium 7.8 L (8.6-10.3) mg/dL Pituitary panel 09/28/17 Range/Units 06:30 Sodium 137 (136-145) mEq/L Potassium 3.8 (3.5-5.1) mEq/L Chloride 110 H (98-107) mEq/L Carbon Dioxide 23 (23-29) mEq/L BUN 6 L (8-23) mg/dL Creatinine 0.41 L (0.60-1.20) mg/dL Glucose 134 H (70-105) mg/dL Calcium 7.8 L (8.6-10.3) mg/dL Adrenal panel 09/28/17 Range/Units 06:30 Sodium 137 (136-145) mEq/L Potassium 3.8 (3.5-5.1) mEq/L Chloride 110 H (98-107) mEq/L Carbon Dioxide 23 (23-29) mEq/L BUN 6 L (8-23) mg/dL Creatinine 0.41 L (0.60-1.20) mg/dL Glucose 134 H (70-105) mg/dL Calcium 7.8 L (8.6-10.3) mg/dL - VTE Documentation of Mechanical Device: Intermittent pneumatic compression device Consult Discharge Plan - Plan Referrals: Zak Moody MD [Non-Partnered Physician] - 10/05/17 11:00 am <Zak Moody - Last Filed: 09/28/17 11:55> Date of Encounter: 09/28/17 - Assessment and Plan (1) Colon polyp Current Visit: Yes Status: Acute Qualifiers: Colon polyp type: adenomatous Colon location: sigmoid Qualified Code(s): D12.5 - Benign neoplasm of sigmoid colon Objective Vital Signs - Last 8 Hours Temp Pulse Resp BP Pulse Ox 09/28/17 11:32 98.6 F 64 15 124/76 97 09/28/17 07:13 98.3 F 72 14 117/63 94 09/28/17 05:52 98.2 F 73 16 119/65 95 Intake and Output 09/27/17 09/28/17 09/28/17 23:59 07:59 15:59 Intake Total 700 / 700 1000 / 1000 120 / 120 Output Total 0 / 0 Balance 700 / 700 1000 / 1000 120 / 120 Intake: IV Fluids 700 / 700 1000 / 1000 KCl 20mEq IN D5%-0.45 NACL 20 700 / 700 1000 / 1000 meq In 1,000 ml @ 100 mls/hr IVC .Q10H [facility] Rx#:[id number] Oral 0 / 0 0 / 0 120 / 120 Output: Urine 0 / 0 Other: Stool Size Moderate Moderate Stool Consistency loose loose Stool Color Green Green # Bowel Movements 1 1 Blood Glucose* 133 130 133 - Labs 09/28/17 06:30 09/28/17 06:30 Diabetes panel 09/28/17 Range/Units 06:30 Sodium 137 (136-145) mEq/L Potassium 3.8 (3.5-5.1) mEq/L Chloride 110 H (98-107) mEq/L Carbon Dioxide 23 (23-29) mEq/L BUN 6 L (8-23) mg/dL Creatinine 0.41 L (0.60-1.20) mg/dL Glucose 134 H (70-105) mg/dL Calcium 7.8 L (8.6-10.3) mg/dL Calcium panel 09/28/17 Range/Units 06:30 Calcium 7.8 L (8.6-10.3) mg/dL Pituitary panel 09/28/17 Range/Units 06:30 Sodium 137 (136-145) mEq/L Potassium 3.8 (3.5-5.1) mEq/L Chloride 110 H (98-107) mEq/L Carbon Dioxide 23 (23-29) mEq/L BUN 6 L (8-23) mg/dL Creatinine 0.41 L (0.60-1.20) mg/dL Glucose 134 H (70-105) mg/dL Calcium 7.8 L (8.6-10.3) mg/dL Adrenal panel 09/28/17 Range/Units 06:30 Sodium 137 (136-145) mEq/L Potassium 3.8 (3.5-5.1) mEq/L Chloride 110 H (98-107) mEq/L Carbon Dioxide 23 (23-29) mEq/L BUN 6 L (8-23) mg/dL Creatinine 0.41 L (0.60-1.20) mg/dL Glucose 134 H (70-105) mg/dL Calcium 7.8 L (8.6-10.3) mg/dL - Attending Attestation I have personally seen and examined the patient. I have reviewed pertinent labs , imaging, progress notes, including this one. I agree with the above assessment and plan and wish to include the following... 66F POD #5 s/p lap conv to open sigmoidectomy; pain is appropriate on exam; incision is clean, dry; slight opening at inferior aspect; is currently packed; having bowel function; adv to FLD; encourage ambulation and IS usage; slow IVF to 75; d/c tool lathe operator;
[2017-09-29] MEDS: Gabapentin 100 MG CAPSULE PO SCH ×4 (00:01→20:05)
[2017-09-29 06:00] LABS: Basophils % 0.3 %; Eosinophils # 0.3 K/mcL (0.0-0.6); Eosinophils % 3.5 %; Hemoglobin 8.4 g/dL (11.5-15.4); Immature Granulocytes % 0.3 % (0-4); Lymphocytes # 1.1 K/mcL (0.6-4.6); Lymphocytes % 12.4 %; Mean Corpuscular HGB Conc 32.3 g/dL (31.6-35.5); Mean Corpuscular Hemoglobin 28.6 pg (28.0-33.3); Mean Corpuscular Volume 88.4 fL (83.0-100.0); Mean Platelet Volume 10.2 fL (9.4-12.4); Monocytes # 0.8 K/mcL (0.0-1.3); Monocytes % 8.5 %; Neutrophils # 6.7 K/mcL (1.6-8.9); Platelet Count 252 K/mcL (140-400); Red Blood Count 2.94 M/mcL (3.82-4.97); Red Cell Distribution Width 14.3 % (11.5-14.5)
[2017-09-29 06:19] LABS: BUN/Creatinine Ratio 10 (6-26); Blood Urea Nitrogen 4 mg/dL (8-23); Calcium 7.8 mg/dL (8.6-10.3); Carbon Dioxide 22 mEq/L (23-29); Chloride 110 mEq/L (98-107); Glucose 119 mg/dL (70-105); Osmolality,Calculated 284 (280-300); Sodium 138 mEq/L (136-145); eGFR For African Americans > 60 (> 60); eGFR For Non-African Americans > 60 (> 60)
[2017-09-29] MEDS: *HR* Enoxaparin 40 MG/0.4 ML SYRINGE SQ SCH (06:58)
[2017-09-29] MEDS: Lisinopril 20 MG TABLET PO SCH (08:17)
[2017-09-29] MEDS: hydroCHLOROthiazide 25 MG TABLET PO SCH (08:17)
[2017-09-29] MEDS: D5% in 0.45% NACL w KCl 20 MEQ/1,000 ML MLS IVC SCH (08:17)
--- NOTE | 2017-09-29 10:51 | General Surgery Progress Note ---
<Linden Westfall - Last Filed: 09/29/17 10:41> Date of Encounter: 09/29/17 Time of Encounter: 07:30 - Assessment and Plan (1) Status post partial colectomy Current Visit: Yes Status: Acute Status post laparoscopic converted to open sigmoidectomy POD#6 Minor abdominal pain on exam, which is more than yesterday however patient was transitioned to oral pain meds and has not taken any since yesterday. She has no BM since yesterday however she does admit to passing gas. She has normal bowel sounds on exam. Able to tolerate full liquid diet. Her WBC count continues to downtrend dropping from 9.6 yesterday to 9 today. She was afebrile overnight. - Continue IVF 75 ml/hr. - Continue full liquid diet. - Encourage activity as tolerated; at least up to chair TID - Monitor electrolytes and replete as needed. - Stopped IV pain meds. Started on oral percocet PRN. Subjective Narrative: Patient says that she has been able to handle the full liquid diet yesterday with the exception of the pudding which gave her some minor nausea. She denies any vomiting. Denies any since yesterday. Admits to passing gas. She says she has slightly increased abdominal pain since yesterday, but she also notes that she has not taken her pain meds since yesterday as well. She denies any chest pain or SOB. She denies any fever overnight. Objective VITAL SIGNS: Reviewed. See [facility] GENERAL: no apparent distress. HEENT: [Normocephalic, PER, EOMi, oropharynx pink/moist, no JVD noted.] CV: b/l rad pulses 2+, RRR, no murmurs or gallops, no JVD RESPIRATORY: CTAB without wheezes, rales, or rhonchi ABD: soft, minor tenderness with deep palpation around incision, no rebound/ guarding/rigidity, no peritoneal signs. Normal bowel sounds present. INCISION: clean, dry, intact without purulence/bleeding/edema/rubor/calor. Minor serosanguinous drainage. EXTREMITY: grossly normal motor function, no pedal edema, peripheral pulses 2+ b /l NEUROLOGIC EXAM: AOx3, obeys commands, no speech deficits. PSYCHIATRIC: normal mood and affect SKIN: no gross lesions, rashes, or skin changes Vital Signs - Last 8 Hours Temp Pulse Resp BP Pulse Ox 09/29/17 08:09 98.5 F 65 16 134/77 97 09/29/17 04:51 98.5 F 64 17 118/60 97 Intake and Output 09/28/17 09/29/17 09/29/17 23:59 07:59 15:59 Intake Total 0 / 0 260 / 260 1360 / 1360 Output Total 0 / 0 0 / 0 0 / 0 Balance 0 / 0 260 / 260 1360 / 1360 Intake: IV Fluids 1000 / 1000 KCl 20mEq IN D5%-0.45 NACL 20 1000 / 1000 meq In 1,000 ml @ 75 mls/hr IVC .[id number] [facility] Rx#:[id number] Oral 0 / 0 260 / 260 360 / 360 Output: Urine 0 / 0 0 / 0 0 / 0 Other: Meal Breakfast # Voids 1 Weight 99.8 kg Blood Glucose* 115 111 Patient Weight 09/29/17 23:59 Weight 99.8 kg - Labs 09/29/17 05:34 09/29/17 05:34 Diabetes panel 09/29/17 Range/Units 05:34 Sodium 138 (136-145) mEq/L Potassium 4.0 (3.5-5.1) mEq/L Chloride 110 H (98-107) mEq/L Carbon Dioxide 22 L (23-29) mEq/L BUN 4 L (8-23) mg/dL Creatinine 0.39 L (0.60-1.20) mg/dL Glucose 119 H (70-105) mg/dL Calcium 7.8 L (8.6-10.3) mg/dL Calcium panel 09/29/17 Range/Units 05:34 Calcium 7.8 L (8.6-10.3) mg/dL Pituitary panel 09/29/17 Range/Units 05:34 Sodium 138 (136-145) mEq/L Potassium 4.0 (3.5-5.1) mEq/L Chloride 110 H (98-107) mEq/L Carbon Dioxide 22 L (23-29) mEq/L BUN 4 L (8-23) mg/dL Creatinine 0.39 L (0.60-1.20) mg/dL Glucose 119 H (70-105) mg/dL Calcium 7.8 L (8.6-10.3) mg/dL Adrenal panel 09/29/17 Range/Units 05:34 Sodium 138 (136-145) mEq/L Potassium 4.0 (3.5-5.1) mEq/L Chloride 110 H (98-107) mEq/L Carbon Dioxide 22 L (23-29) mEq/L BUN 4 L (8-23) mg/dL Creatinine 0.39 L (0.60-1.20) mg/dL Glucose 119 H (70-105) mg/dL Calcium 7.8 L (8.6-10.3) mg/dL - VTE Documentation of Mechanical Device: Graduated compression elastic hosiery Consult Discharge Plan - Plan Referrals: Zak Moody MD [Non-Partnered Physician] - 10/05/17 11:00 am <Zak Moody - Last Filed: 09/29/17 13:50> Date of Encounter: 09/29/17 - Assessment and Plan (1) Colon polyp Current Visit: Yes Status: Acute Qualifiers: Colon polyp type: adenomatous Colon location: sigmoid Qualified Code(s): D12.5 - Benign neoplasm of sigmoid colon Objective Vital Signs - Last 8 Hours Temp Pulse Resp BP Pulse Ox 09/29/17 11:37 98.5 F 94 16 128/80 96 09/29/17 08:09 98.5 F 65 16 134/77 97 Intake and Output 09/28/17 09/29/17 09/29/17 23:59 07:59 15:59 Intake Total 0 / 0 260 / 260 1600 / 1600 Output Total 0 / 0 0 / 0 0 / 0 Balance 0 / 0 260 / 260 1600 / 1600 Intake: IV Fluids 1000 / 1000 KCl 20mEq IN D5%-0.45 NACL 20 1000 / 1000 meq In 1,000 ml @ 75 mls/hr IVC .[id number] [facility] Rx#:[id number] Oral 0 / 0 260 / 260 600 / 600 Output: Urine 0 / 0 0 / 0 0 / 0 Other: Meal Breakfast Stool Size Moderate Stool Consistency loose soft Stool Color Brown # Voids 1 1 Weight 99.8 kg Blood Glucose* 115 104 Patient Weight 09/29/17 23:59 Weight 99.8 kg - Labs 09/29/17 05:34 09/29/17 05:34 Diabetes panel 09/29/17 Range/Units 05:34 Sodium 138 (136-145) mEq/L Potassium 4.0 (3.5-5.1) mEq/L Chloride 110 H (98-107) mEq/L Carbon Dioxide 22 L (23-29) mEq/L BUN 4 L (8-23) mg/dL Creatinine 0.39 L (0.60-1.20) mg/dL Glucose 119 H (70-105) mg/dL Calcium 7.8 L (8.6-10.3) mg/dL Calcium panel 09/29/17 Range/Units 05:34 Calcium 7.8 L (8.6-10.3) mg/dL Pituitary panel 09/29/17 Range/Units 05:34 Sodium 138 (136-145) mEq/L Potassium 4.0 (3.5-5.1) mEq/L Chloride 110 H (98-107) mEq/L Carbon Dioxide 22 L (23-29) mEq/L BUN 4 L (8-23) mg/dL Creatinine 0.39 L (0.60-1.20) mg/dL Glucose 119 H (70-105) mg/dL Calcium 7.8 L (8.6-10.3) mg/dL Adrenal panel 09/29/17 Range/Units 05:34 Sodium 138 (136-145) mEq/L Potassium 4.0 (3.5-5.1) mEq/L Chloride 110 H (98-107) mEq/L Carbon Dioxide 22 L (23-29) mEq/L BUN 4 L (8-23) mg/dL Creatinine 0.39 L (0.60-1.20) mg/dL Glucose 119 H (70-105) mg/dL Calcium 7.8 L (8.6-10.3) mg/dL - Attending Attestation I have personally seen and examined the patient. I have reviewed pertinent labs , imaging, progress notes, including this one. I agree with the above assessment and plan and wish to include the following... 66F POD #6 s/p lap conv to open sigmoidectomy; patient is afebrile, appropriately tender, but reports feeling bloated (non distended on my exam); poor PO intake last 24hrs, but having bowel function; recommend SLIV once tolerating more PO, encouraged ambulation, added to PO pain regimen; will reassess over next 24hrs;
[2017-09-29] MEDS: *HR* OxyCODONE/APAP 5/325 TABLET PO PRN ×2 (13:05→20:25)
[2017-09-30] MEDS: D5% in 0.45% NACL w KCl 20 MEQ/1,000 ML MLS IVC SCH (01:17)
[2017-09-30] MEDS: *HR* OxyCODONE/APAP 5/325 TABLET PO PRN (04:37)
[2017-09-30] MEDS: hydroCHLOROthiazide 25 MG TABLET PO SCH (08:52)
[2017-09-30] MEDS: *HR* Enoxaparin 40 MG/0.4 ML SYRINGE SQ SCH (08:53)
[2017-09-30] MEDS: Lisinopril 20 MG TABLET PO SCH (08:53)
[2017-09-30] MEDS: Gabapentin 100 MG CAPSULE PO SCH ×2 (08:55→15:04)
--- NOTE | 2017-09-30 09:31 | General Surgery Progress Note ---
Date of Encounter: 09/30/17 Time of Encounter: 09:28 - Assessment and Plan (1) Colon polyp Current Visit: Yes Status: Acute 66F POD #7 s/p lap sigmoidectomy converted to open; tolerating FLD; ambulating; good PO intake yesterday; pain controlled advance to reg diet for breakfast; if tolerates reg diet, make sure home health is set can likely be d/c'd after lunch can follow up with me in my [facility] 1 week after discharge Qualifiers: Colon polyp type: adenomatous Colon location: sigmoid Qualified Code(s): D12.5 - Benign neoplasm of sigmoid colon Subjective Patient reports: no new complaints, feels better, still having pain, pain is less, tolerating liquids well, flatus, bowel movement, diarrhea, afebrile Objective Vital Signs - Last 8 Hours Temp Pulse Resp BP Pulse Ox 09/30/17 04:18 98.2 F 79 14 118/61 97 Intake and Output 09/29/17 09/30/17 09/30/17 23:59 07:59 15:59 Intake Total 1240 / 1240 400 / 400 Balance 1240 / 1240 400 / 400 Intake: IV Fluids 1000 / 1000 400 / 400 KCl 20mEq IN D5%-0.45 NACL 20 1000 / 1000 400 / 400 meq In 1,000 ml @ 75 mls/hr IVC .[id number] [facility] Rx#:[id number] Oral 240 / 240 Other: Meal Dinner # Voids 2 # Bowel Movements 0 Weight 100.1 kg Blood Glucose* 115 Patient Weight 09/30/17 23:59 Weight 100.1 kg - General physical appearance no distress - Respiratory normal expansion, normal respiratory effort - Cardiovascular Cardiovascular exam: Present: RRR - Abdomen Abdomen: Present: soft, tender (appropriately tender to palpation; ) - Incision Incision: Present: clean and dry, open (at the inferior portion; packing placed) - Integumentary no rash - Neurologic CN 2-12 grossly intact - Musculoskeletal normal gait, normal posture - Psychiatric oriented to time, oriented to person, oriented to place - Labs 09/29/17 05:34 09/29/17 05:34 - VTE Documentation of Mechanical Device: Intermittent pneumatic compression device Consult Discharge Plan - Plan Referrals: Zak Moody MD [Non-Partnered Physician] - 10/05/17 11:00 am
--- NOTE | 2017-09-30 10:49 | Discharge Summary ---
<Linden Westfall - Last Filed: 09/30/17 14:37> Date of Encounter: 09/30/17 Time of Encounter: 08:00 - Discharge Diagnosis (1) Status post partial colectomy Priority: Primary Status: Acute General Surgery Exam VITAL SIGNS: Reviewed. See [facility] GENERAL: no apparent distress. HEENT: [Normocephalic, PER, EOMi, oropharynx pink/moist, no JVD noted.] CV: b/l rad pulses 2+, RRR, no murmurs or gallops, no JVD RESPIRATORY: CTAB without wheezes, rales, or rhonchi ABD: soft, non-tender, no rebound/guarding/rigidity, no peritoneal signs. Normal bowel sounds present. INCISION: clean, dry, intact without purulence/bleeding/edema/rubor/calor. Moderate serous drainage. EXTREMITY: grossly normal motor function, no pedal edema, peripheral pulses 2+ b /l NEUROLOGIC EXAM: AOx3, obeys commands, no speech deficits. PSYCHIATRIC: normal mood and affect SKIN: no gross lesions, rashes, or skin changes Initial Vital Signs Temp Pulse Resp BP Pulse Ox 97.8 F 97 18 113/63 98 09/23/17 13:00 09/23/17 13:00 09/23/17 13:00 09/23/17 13:00 09/23/17 13:00 - General physical appearance well developed, well nourished, no distress - Hospital Course Hospital course: Ms. Crawford is a 66 year old female with a PMH of hyperlipidemia and HTN with a PSH of appendectomy, cholecystectomy, and hysterectomy that presented on for an unresectable poylp. Patient had a colonoscopy performed on 09/01/17 which noted a 7 mm polyp in the sigmoid colon which was unresectable. In addition, patient has reported that she has had tarry black blood rectal discharge for over one year. For these reasons, she was admitted to the hospital for scheduled surgery Patient underwent a laproscopic converted to open sigmoid colectomy on 09/23/17. Patient was been progressively recovering since the procedure. Her diet was appropriately advanced as tolerated. Her pain as been well controlled and she is currently on PO pain medications. When seen today, patient denies any abdominal pain. She denies any nausea or vomiting. She denies any chest pain or shortness of breath. She has been afebrile overnight and throughout her stay at the hospital. Her WBC count has steadily normalized from 17.2 (on 09/24/17) since the procedure down to 9 yesterday (). Her blood pressure is normotensive at 118/61. Patient had some moderate serous drainage today from her incision when she sat down on her bed. Most likely secondary to ocket collection of fluid. She was not actively draining upon re-examination. We will place a wound vaccum on her before she leaves. She was able to tolerate her full liquid diet yesterday. Today she was advanced to a regular diet. Patient will be discharged later today pending she is able to tolerate the regular diet. - Time Spent with Patient Total time spent providing and/or coordinating discharge services: Less than 30 minutes - Discharge Medications Prescriptions: Ondansetron ODT [Zofran ODT] 4 mg SL Q6HR PRN #15 tab.rapdis PRN Reason: Nausea Docusate [Colace] 100 mg PO BID PRN #30 capsule PRN Reason: Constipation Ibuprofen 800 mg PO Q8H PRN 14 Days #42 tablet PRN Reason: Pain Oxycodone HCl/Acetaminophen [Endocet 5-325 Tablet] 1 each PO Q6H PRN 7 Days #28 tablet PRN Reason: Pain Home Medications: ALPRAZolam [Xanax 0.5 MG Tablet] 0.5 mg PO BID PRN 09/23/17 [History] Atorvastatin [Lipitor] 10 mg PO HS 09/23/17 [History] Bran/Gum/Fib/Monica/Psyl/Kelp/Pec [Fiber 6 Tablet] 1,000 mg PO DAILY 09/23/17 [ History] Fish Oil/Dha/Epa [Fish Oil 1,200 mg Fish Oil] 1 cap PO DAILY 09/23/17 [History] Gabapentin [Neurontin] 100 mg PO BID 09/23/17 [History] Gabapentin [Neurontin] 200 mg PO HS 09/23/17 [History] Hydrochlorothiazide [Microzide] 12.5 mg PO DAILY 09/23/17 [History] Lisinopril [Zestril] 20 mg PO DAILY 09/23/17 [History] Multivitamin/Iron/Folic Acid [Centrum Women Tablet] 1 tab PO DAILY 09/23/17 [ History] Docusate [Colace] 100 mg PO BID PRN #30 capsule 09/30/17 [Rx] Ibuprofen 800 mg PO Q8H PRN 14 Days #42 tablet 09/30/17 [Rx] Ondansetron ODT [Zofran ODT] 4 mg SL Q6HR PRN #15 tab.rapdis 09/30/17 [Rx] Oxycodone HCl/Acetaminophen [Endocet 5-325 Tablet] 1 each PO Q6H PRN 7 Days #28 tablet 09/30/17 [Rx] Allergies/Adverse Reactions: 3 Allergy/AdvReac Type Severity Reaction Status Date / Time No Known Allergies Allergy Verified 09/23/17 13:17 Date of admission: 09/23/17 23:43 Primary care physician: Radha Warner CNP Labs on day of discharge: Labs from last 24 hours 09/30/17 09/29/17 09/29/17 07:15 21:29 15:44 POC Glucose 105 H 115 H 144 H 09/29/17 11:33 POC Glucose 104 H - Patient Status Disposition: Home Health Service Condition: Fair Functional capacity at discharge: independent ambulation Overall status at discharge: patient is progressing back to baseline - Discharge Instructions Instructions: Colectomy (DC) Follow Up With: Zak Moody MD [Non-Partnered Physician] - 10/05/17 11:00 am Additional Instructions: 1. You may shower, avoid soaking your incision in a tub for a week or so. Cleanse incision gently with a mild soap and water-rinse thoroughly pat dry. Your incision does not need to be redressed. Any sutures or clips still in place at the time of discharge will be removed at your first postoperative visit. Should you have steri-strips across your incision, they will begin to curl as your incision heals (usually within 5-7 days). You may peel them off when this happens. Avoid applying cream, lotions, or powder to your incision. 2. There are no specific dietary restrictions associated with this surgery. Maintaining a well balanced diet is essential for proper healing. Oral fluids are encouraged. 3. It is safe to use a mild laxative. Do so if your bowels have not moved by the third day at home. 4. Walking is healthy. Gradually increase ambulation and activities each day. Allow for regular, uninterrupted rest periods. You are permitted to go up and down stairs slowly while using a handrail. Avoid sitting for long periods of time; avoid crossing your legs; avoid heavy lifting (nothing over 10- 15 pounds) for 6-8 weeks; and avoid any strenuous sports. 5. You may drive when you are comfortable enough to react and move quickly in an emergency (usually 1-2 weeks after surgery). Long trips over 25 miles are not advised. Do not drive if you are taking prescription pain medication. 6. For pain, one of the Ibuprofen compounds (Advil, Nuprin, etc.) or Tylenol is suggested. Should these not be effective in managing your discomfort, prescription pain medications will be given on an individual basis. 7. Please call the office to report any of the following: Temperature of 101 or higher. Signs of infection, possibly including increasing redness, warmth, tenderness, drainage, odor at incision site Persistent moderate to severe pain No bowel movement within 48 hours from OR date. You are to have a follow-up visit with your surgeon Dr. Moody on 10/05/17 on 11 AM. - Diet and Activity Activity: resume usual activities as tolerated Diet: low fat, low cholesterol <Zak Moody - Last Filed: 10/02/17 09:52> Date of Encounter: 10/02/17 - Discharge Diagnosis (1) Colon polyp Status: Resolved Qualifiers: Colon polyp type: adenomatous Colon location: sigmoid Qualified Code(s): D12.5 - Benign neoplasm of sigmoid colon General Surgery Exam Initial Vital Signs Temp Pulse Resp BP Pulse Ox 97.8 F 97 18 113/63 98 09/23/17 13:00 09/23/17 13:00 09/23/17 13:00 09/23/17 13:00 09/23/17 13:00 - Hospital Course Hospital course: Ms. Crawford is a 66 year old female - Time Spent with Patient Total time spent providing and/or coordinating discharge services: Date of admission: 09/23/17 23:43 Primary care physician: Radha Warner CNP - Attending Attestation patient seen and examined. i have reviewed all pertinent labs, imaging, and notes. i agree with the above assessment and plan
--- NOTE | 2017-09-30 12:42 | Physician Discharge Referral ---
<Cristal Huynh Viv - Last Filed: 09/30/17 12:40> Home Health/Hosp Referral Info Transfer to: Home Health Attending Provider: Dr. Zak Moody Provider in Charge Post Discharge: Other (Dr. Zak Moody and PCP) - Diagnosis (1) Colon polyp Priority: Primary Status: Resolved (2) Status post partial colectomy Priority: Primary Status: Acute (3) HTN (hypertension) Priority: Secondary Status: Chronic - Respiratory Orders None - Dressing/Wound Care Site: Midline incision Type of Dressing/Treatments w/Frequency: Wound vac therapy- small black foam to bottom of wound, place to 125mmHG continuous suction. Change every M-W-F Next vac change scheduled for 10/03/17 with home health care - Diet/Nutrition Diet/Nutrition Orders: Regular - Activity Activity Orders: Up ad sukhjinder - Services Needed Following services are medically necessary services: Senior Living Care Orders: Home health may see on 10/03/17 for next wound vac change- See wound care orders for details #1 may shower, no tub bath for 2 weeks until cleared per surgeon #2 wash incisions with soap and water and pat dry daily #3 no lifting, pushing, pulling more than 15 pounds for the next 2 weeks #4 no driving until off narcotics for 24 hours and able to safely react in the car #5 may climb stairs - Transfer Medications Prescriptions: Ondansetron ODT [Zofran ODT] 4 mg SL Q6HR PRN #15 tab.rapdis PRN Reason: Nausea Docusate [Colace] 100 mg PO BID PRN #30 capsule PRN Reason: Constipation Ibuprofen 800 mg PO Q8H PRN 14 Days #42 tablet PRN Reason: Pain Oxycodone HCl/Acetaminophen [Endocet 5-325 Tablet] 1 each PO Q6H PRN 7 Days #28 tablet PRN Reason: Pain Home Medications: ALPRAZolam [Xanax 0.5 MG Tablet] 0.5 mg PO BID PRN 09/23/17 [History] Atorvastatin [Lipitor] 10 mg PO HS 09/23/17 [History] Bran/Gum/Fib/Monica/Psyl/Kelp/Pec [Fiber 6 Tablet] 1,000 mg PO DAILY 09/23/17 [ History] Fish Oil/Dha/Epa [Fish Oil 1,200 mg Fish Oil] 1 cap PO DAILY 09/23/17 [History] Gabapentin [Neurontin] 100 mg PO BID 09/23/17 [History] Gabapentin [Neurontin] 200 mg PO HS 09/23/17 [History] Hydrochlorothiazide [Microzide] 12.5 mg PO DAILY 09/23/17 [History] Lisinopril [Zestril] 20 mg PO DAILY 09/23/17 [History] Multivitamin/Iron/Folic Acid [Centrum Women Tablet] 1 tab PO DAILY 09/23/17 [ History] Docusate [Colace] 100 mg PO BID PRN #30 capsule 09/30/17 [Rx] Ibuprofen 800 mg PO Q8H PRN 14 Days #42 tablet 09/30/17 [Rx] Ondansetron ODT [Zofran ODT] 4 mg SL Q6HR PRN #15 tab.rapdis 09/30/17 [Rx] Oxycodone HCl/Acetaminophen [Endocet 5-325 Tablet] 1 each PO Q6H PRN 7 Days #28 tablet 09/30/17 [Rx] Allergies/Adverse Reactions: 3 Allergy/AdvReac Type Severity Reaction Status Date / Time No Known Allergies Allergy Verified 09/23/17 13:17 Certification: Further, I certify that my clinical findings support that this patient is homebound (i.e. absences from home require considerable and taxing effort and are for medical reasons or jew services or infrequently or short duration when for other reasons) because: Homebound Reason: Patient requires assistance of a person or device to safely leave home, Post-surgery restriction and or conditions limit ability to leave home, Leaving home requires considerable and taxing effort due to condition Attestation: My signature below is to certify that this patient is under my care and that I, or nurse practitioner, or a physician's research study assistant working with me, has a face-to -face encounter with this patient. <Zak Moody - Last Filed: 10/02/17 09:52> - Diagnosis (1) Colon polyp Status: Resolved - Respiratory Orders Smoking Cessation: Smoking cessation has been advised. For more information, call the [place] Tobacco Quit Line at 0-091-UYVJ-NOW. Certification: Further, I certify that my clinical findings support that this patient is homebound (i.e. absences from home require considerable and taxing effort and are for medical reasons or jew services or infrequently or short duration when for other reasons) because: Attestation: My signature below is to certify that this patient is under my care and that I, or nurse practitioner, or a physician's research study assistant working with me, has a face-to -face encounter with this patient.
[2017-09-30 15:27] VITALS: BP 106/65
== END 2017-09-30 16:06 | disposition home health service (06) | DRG 330 ==
LOC: SAMDAY 11:54 → 3ANU 23:43
PROVIDERS: ADMIT Surgery; ATTEND Surgery